=== PATIENT | male | born 1975 | race Caucasian/White ===

== ENCOUNTER 2019-08-12 14:00 | Outpatient (CLI) | payer BC, SELFPAY ==
[2019-08-12 14:28] LABS: Influenza Control Valid (Valid)
== END 2019-08-12 14:01 | disposition home or self-care (01) ==
LOC: CHSLAB 14:04
PROVIDERS: PCP Family Medicine; Visit Provider Family Medicine
DX: R05 Cough (principal)
CPT/HCPCS: 87804

== ENCOUNTER 2023-02-09 10:00 | Outpatient (CLI) | payer OTHER, SELFPAY ==
--- NOTE | ~2023-02-09 | XR_ITS ---
XR lumbar spine 2-3V 02/09/2023 10:26 Indication: Sciatica. Buttock pain. Procedure: 3 views lumbar spine Comparison: No prior studies for comparison. Findings: There is disc narrowing at L5-S1. Vertebral body heights are maintained. There are innumera ble calcified granulomas in the lung bases. There are small marginal osteophytes at multiple levels. There is mild disc narrowing at L4-5. No evidence for spondylolisthesis. No acute fracture or traumat ic malalignment. Impression: 1: Mild lumbar spondylosis. Reviewed, dictated and finalized at location A. Impression: 1: Mild lumbar spondylosis.
== END 2023-02-09 10:01 | disposition home or self-care (01) ==
LOC: CHSIMG 10:05
PROVIDERS: PCP Family Medicine; Visit Provider Family Medicine
DX: M54.40 Lumbago with sciatica, unspecified side (principal); M43.06 Spondylolysis, lumbar region
CPT/HCPCS: 72100

== ENCOUNTER 2025-04-20 09:53 | Outpatient (CLI) | payer OTHER, SELFPAY ==
--- OUTSIDE RECORDS SUMMARY | 2025-04-20 10:43 | XMS_ITS | Encounter Summary ---
Author Organization [facility] Address [address] [place] [address] Care Team Providers Care Tool And Production Planner Name Role Phone Oniel Zacarias MD Primary Care Provider [phone] Malissa Gunter-BC Unavailable +- Reason for Visit * Reason Comments ECG (SCAN) Encounter Details Date Type Department Care Team (Late st Contact Info) Description 04/12/2025 [facility] [address] [place] [address] Scanned, Doc Pccl ECG (SCAN) Social History Tobacco Use Types Packs/Day Years Used Date Smoking Tobacco: Never Assessed Sex and Gender Information Value Date Recorded Sex Assigned at Not on file Legal Sex Male 10:52 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 Gender Identity Not on file Sexual Orientation Not on file documented as of this encounter Plan of Treatment Upcoming Encounters Date Type Department Care Team (Late st Contact Info) Description 04/30/2025 8:30 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 Office Visit [facility] [address] [place] [address] Malissa Gunter, ANP-BC [address] [place] [address] documented as of this encounter Procedures Procedure Name Priority Date/Time Associated Diagnosis Comments ECG GENERIC (SCAN ORDER) Routine 04/12/2025 12:00 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 documented in this encounter Results * ECG (04/12/2025 12:00 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) 04/12/2025 us Doc Pccl Scanned SCANNING Final Result [facility] documented in this encounter Visit Diagnoses Not on filedocumented in this encounter Care Teams Tool And Production Planner Relationship Specialty Start Date End Date Oniel Zacarias MD [address] [place], [place] [id number] PCP - General FAMILY PRACTICE 04/12/25 Malissa Gunter ANP- [address] [place] [address] [phone] Nurse Practitioner CARDIOLOGY 04/12/25 documented as of this encounter
--- OUTSIDE RECORDS SUMMARY | 2025-04-20 10:43 | XMS_ITS | Clinical Summary ---
Author Organization [facility] Address [facility] [place] [address] Care Team Providers Care Amphibious Operations Officer Name Role Phone Oniel Zacarias MD Primary Care Provider [phone] Malissa Gunter-BC Unavailable [phone] Encounters Date Type Department Care Team Description 04/12/2025 Scan [facility] [address] [place] [address] Scanned, Doc Pccl ECG (SCAN) 04/12/2025 Telephone [facility] [id number] [place] [phone] Malissa Gunter, ANP-BC Referral Request from Last 3 Months Social History Tobacco Use Types Packs/Day Years Used Date Smoking Tobacco: Never Assessed Sex and Gender Information Value Date Recorded Sex Assigned at Not on file 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 Gender Identity Not on file Sexual Orientation Not on file Plan of Treatment Upcoming Encounters Date Type Department Care Team (Late st Contact Info) Description 04/30/2025 8:30 AM 4TH GRADE MATH TEACHER Office Visit [facility] [address] [place] [phone] Malissa Gunter, ANP-BC [address] [place] [address] Health Maintenance Due Date Last Done Comments Colorectal Cancer Screening Colonoscopy (10 Years) 1974 Annual Physical 1977 Hepatitis C 1992 DTaP, Tdap and Td Vaccines ( 1 - Tdap) 1993 Hepatitis B Vaccines (1 of 3 - 19+ 3-dose series) 1993 Pneumococcal Vaccine: 50+ Ye ars (1 of 1 - PCV) 2024 Zoster Vaccines (1 of 2) 2024 COVID-19 Vaccine (1 - 2024-2 6 season) 2025 Influenza Adult (#1) 2025 Hepatitis A Vaccines Aged Out No long er eligible based on patient's age to complete this topic Meningococcal B Vaccine Aged Out No l onger eligible based on patient's age to complete this topic Meningococcal Vaccine Aged Out No keturah vonda eligible based on patient's age to complete this topic RSV Immunizations Under 20 Months Aged Out No longer eligible based on patient's age to complete this topic Procedures Procedure Name Priority Date/Time Associated Diagnosis Comments ECG GENERIC (SCAN ORDER) Routine 04/12/2025 12:00 AM 4TH GRADE MATH TEACHER from Last 3 Months Results * ECG (04/12/2025 12:00 AM 4TH GRADE MATH TEACHER) 04/12/2025 us Doc Pccl Scanned SCANNING Final Result [facility] from Last 3 Months Insurance [facility] Care Teams Amphibious Operations Officer Relationship Specialty Start Date End Date Oniel Zacarias MD [address] [place] [address] PCP - General FAMILY PRACTICE 04/12/25 Malissa Gunter ANP- [address] [place] [phone] Nurse Practitioner CARDIOLOGY 04/12/25
--- OUTSIDE RECORDS SUMMARY | 2025-04-20 10:43 | XMS_ITS | Clinical Summary ---
Author Organization [facility] Address [address] [place] [address] Care Team Providers Care Diagrammer And Seamer Name Role Phone Unavailable Primary Care Provider Unavailabl e Source Comments [facility]non-owned Affiliates and Associated Physician Practices is amultiple site organization consisting of ambulatory clinics and hospital sitesin [place], [place], [place] and [place]. This disclosure is being madepursuant to the Care Everywhere program and may not contain all information available regarding this patient. Last updated 18.[facility] Allergies Active Allergy Reactions Criticality Noted Date Comments Penicillins Anaphylaxis High 04/26/2017 Medications * Be aware that medications may not be up to date on this document. Alwaysverify current medications with the patient. No known medications Social History Tobacco Use Types Packs/Day Years Used Date Smoking Tobacco: Every Day Smokeless Tobacco: Never Sex and Gender Information Value Date Recorded Sex Assigned at Not on file Legal Sex Male 5:33 AM TACTICAL DECEPTION PLANS OFFICER Gender Identity Not on file Sexual Orientation Not on file Last Filed Vital Signs Vital Sign Reading Time Taken Comments Blood Pressure 90/62 04/26/2017 9:44 AM TACTICAL DECEPTION PLANS OFFICER Pulse 49 04/26/2017 9:44 AM TACTICAL DECEPTION PLANS OFFICER Temperature 36.5 C (97.7 F) 04/26/2017 9:44 AM TACTICAL DECEPTION PLANS OFFICER Respiratory Rate 16 04/26/2017 9:44 AM TACTICAL DECEPTION PLANS OFFICER Oxygen Saturation 99% 04/26/2017 9:44 AM TACTICAL DECEPTION PLANS OFFICER Inhaled Oxygen Concentration - - Weight 81.6 kg (180 lb) 04/26/2017 9:44 AM TACTICAL DECEPTION PLANS OFFICER Height 185.4 cm (6' 1) 04/26/2017 9:44 AM TACTICAL DECEPTION PLANS OFFICER Body Mass Index 23.75 04/26/2017 9:44 AM TACTICAL DECEPTION PLANS OFFICER Plan of Treatment Health Maintenance Due Date Last Done Comments COLOGUARD (AGES 45-75) - COL ON CA SCREENING 1974 COLON MONITORING 1974 COLONOSCOPY - COLON CA SCREENING 1974 CT COLONOGRAPHY - COLON CA SCREENING 1974 Colorectal Cancer Screening 1974 FIT - COLON CA SCREENING 1974 FLEX SIG - COLON CA SCREENING 1974 LIPID TESTING 1974 HIV SCREENING 1989 HEPATITIS C SCREENING 06/01/1992 DTAP/TDAP/TD VACCINES (1 - Tdap) 1993 HEPATITIS B VACCINE (1 of 3 - 19+ 3-dose series) 1993 DEPRESSION SCREENING 05/20/2024 PNEUMOCOCCAL VACCINE 50+ (1 of 1 - PCV) 2024 ZOSTER VACCINE (1 of 2) 2024 COVID-19 VACCINE (1 - 2024-2 6 season) 2025 INFLUENZA VACCINE (#1) 2025 HIB VACCINE Aged Out No longer eligi ble based on patient's age to complete this topic HPV VACCINE Aged Out No longer eligi ble based on patient's age to complete this topic MENINGOCOCCAL (Group B) VACC INE SHARED DECISION-MAKING Aged Out No longer eligibl e based on patient's age to complete this topic MENINGOCOCCAL GROUPS A/C/Y/W VACCINE Aged Out No longer eligible b ased on patient's age to complete this topic Insurance [employer]
--- NOTE | 2025-05-11 09:33 | WPDHOLTEREM ---
Holter/Event Monitor Holter/Event Monitor Date of procedure: 04/20/25 Holter/Event Procedure: Event Monitor Indications: Syncope Conclusion: 1. 14 days event monitor on 04/20/25. 2. Predominant rhythm is sinus rhythm. HR range 27-152 bpm; average 57 bpm. HR at 27 bpm was on 04/30/25 at 3:06 pm. 3. There are rare premature supraventricular complexes, rare supraventricular couplets and rare supraventricular triplets. There are 2 episodes of supraventricular tachycardia with fastest at 152 bpm and longest lasting 12.5 seconds. 4. There are rare premature ventricular complexes and rare ventricular couplets. No ventricular tachycardia. 5. No significant pauses greater than 3 seconds. 6. Patient reports 1 episode of symptom of lightheadedness which demonstrates sinus rhythm at 63 bpm.
== END 2025-04-20 09:54 | disposition home or self-care (01) ==
PROVIDERS: PCP Family Medicine; Visit Provider Family Medicine
DX: R55 Syncope and collapse (principal)
CPT/HCPCS: 93246

== ENCOUNTER 2025-05-06 15:56 | Outpatient (CLI) | payer OTHER, SELFPAY ==
--- NOTE | ~2025-05-06 | MR_ITS ---
EXAMINATION: MR brain/brain stem wo/w con DATE: 05/06/2025 17:31 INDICATION: Headache TECHNIQUE: Magnetic resonance imaging (MRI) of the brain and brainstem was performed without and with 17 mL Multihance intravenous contrast. Sequences included sagittal and axial T1-weighted SE, axial diffusion-weighted FS SE, axial T2*-weighted GRE, axial T2-weighted FLAIR, and axial T2-weighted FSE. Postcontrast axial and coronal T1-weighted SE was obtained. Apparent diffusion coefficient (ADC) maps were created. COMPARISON: None. FINDINGS: There are no areas of restricted diffusion to suggest acute infarction. No intracranial hemorrhage or abnormal intracranial mass lesion. There are scattered areas of nonspecific increased T2-weighted signal intensity in the cerebral white matter, predominantly involving the deep and periventricular whi te matter. There are no intraparenchymal signal abnormalities seen on the other pulse sequences. The ventricles are symmetric and normal in size. There are no abnormal extra-axial fluid collections. Flow voids are seen in the cerebral arteries on the T2-weighted sequences consistent with their expected patency. Mild mucosal thickening the bilateral ethmoid and frontal sinuses. Visualized orbits and soft tissues are unremarkable. There are no areas of abnormal enhancement on the post contrast images. IMPRESSION: 1. No acute intracranial process. 2. Age-related changes including mild scattered mesenteric white matter T2 hyperintensity consistent with chronic small vessel ischemic disease. Reviewed, dictated and finalized at location A. NG MACHINE OPERATOR IMPRESSION: 1. No acute intracranial process. 2. Age-related changes including mild scattered mesenteric white matter T2 hype rintensity consistent with chronic small vessel ischemic disease.
--- OUTSIDE RECORDS SUMMARY | 2025-05-06 16:15 | XMS_ITS | Clinical Summary ---
Author Organization [facility] Address [address] [place] [address] Care Team Providers Care Package Lift Operator Name Role Phone Unavailable Primary Care Provider Unavailabl e Source Comments [facility],non-owned Affiliates and Associated Physician Practices is amultiple site organization consisting of ambulatory clinics and hospital sitesin [place], [place], [place] and [place]. This disclosure is being madepursuant to the Care Everywhere program and may not contain all information available regarding this patient. 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 Gender Identity Not on file Sexual Orientation Not on file Last Filed Vital Signs Vital Sign Reading Time Taken Comments Blood Pressure 90/62 04/26/2017 9:44 AM FRUIT II FARMWORKER Pulse 49 04/26/2017 9:44 AM FRUIT II FARMWORKER Temperature 36.5 C (97.7 F) 04/26/2017 9:44 AM FRUIT II FARMWORKER Respiratory Rate 16 04/26/2017 9:44 AM FRUIT II FARMWORKER Oxygen Saturation 99% 04/26/2017 9:44 AM FRUIT II FARMWORKER Inhaled Oxygen Concentration - - Weight 81.6 kg (180 lb) 04/26/2017 9:44 AM FRUIT II FARMWORKER Height 185.4 cm (6' 1) 04/26/2017 9:44 AM FRUIT II FARMWORKER Body Mass Index 23.75 04/26/2017 9:44 AM FRUIT II FARMWORKER Plan of Treatment Health Maintenance Due Date [...]
== END 2025-05-06 15:57 | disposition home or self-care (01) ==
PROVIDERS: PCP Family Medicine; Visit Provider Family Medicine
DX: R51.9 Headache, unspecified (principal)
CPT/HCPCS: 70553